=== PATIENT | female | born 1980 | race Asian ===

== ENCOUNTER 2021-11-23 16:03 | Emergency (ER) | payer OTHER ==
[~2021-11-23] VITALS: Ht 165.1 cm; Wt 68.0 kg
[2021-11-23] MEDS ORDERED: VISCOUS LIDOCAINE 2% 15 ML UDC PO STA ×2 (16:33→22:08)
[2021-11-23] MEDS ORDERED: MAGNESIUM/ALUMINUM HYDROXIDE/SIMETHICONE 30ML UDC PO STA ×2 (16:33→22:08)
[2021-11-23] MEDS ORDERED: FAMOTIDINE 20MG TABLET PO ONE ×2 (16:45→22:15)
[2021-11-23] MEDS ORDERED: ONDANSETRON HCL 4MG/2ML INJ IV ONE ×2 (16:45→22:15)
[2021-11-23 17:43] LABS: HEMATOCRIT. 44.3 % (36.0-48.0); HEMOGLOBIN. 14.3 g/dL (12.0-16.0); MEAN CORPUSCULAR HEMOGLOBIN 24.9 pg (28.0-32.0); MEAN CORPUSCULAR VOLUME 77.3 fL (81.0-99.0); PLATELET 254 x1000/uL (130-400); RED BLOOD CELL COUNT 5.72 mill/uL (4.2-5.4)
[2021-11-23 17:48] LABS: CHLORIDE 110 mEq/L (98-107)
[2021-11-23 17:51] LABS: HCG SCREEN NEGATIVE
[2021-11-23] MEDS ORDERED: SODIUM CHLORIDE 0.9% 1,000 ML IV ONE ×2 (18:15→22:15)
[2021-11-23 18:52] LABS: PLATELET ESTIMATE NORMAL
[2021-11-23 19:07] LABS: CLARITY URINE CLEAR (CLEAR); COLOR URINE YELLOW (YELLOW); KETONES URINE NEGATIVE (NEGATIVE); LEUKOCYTE ESTERASE URINE NEGATIVE (NEGATIVE); NITRITE URINE NEGATIVE (NEGATIVE); OCCULT BLOOD URINE TRACE (NEGATIVE); PH URINE 6.5 (4.5-8.0); PROTEIN URINE NEGATIVE (NEGATIVE); UROBILINOGEN URINE 0.2 E.U./dL (0.2-1.0)
[2021-11-23] MEDS ORDERED: LOPERAMIDE HCL 2MG CAPSULE PO ONE ×2 (23:00→23:30)
[2021-11-23] MEDS ORDERED: FAMO20TA8 MT (23:12)
[2021-11-23] MEDS ORDERED: MAG-55 MT (23:12)
[2021-11-23] MEDS ORDERED: IMOD MT (23:12)
[2021-11-23 23:15] VITALS: BP 180/99
== END 2021-11-24 00:08 | disposition left against medical advice (07) ==
LOC: ER 16:03
DX: R10.13 Epigastric pain (principal); D72.825 Bandemia; E87.2 Acidosis; D72.829 Elevated white blood cell count, unspecified; I10 Essential (primary) hypertension; Z90.710 Acquired absence of both cervix and uterus; Z98.890 Other specified postprocedural states
CPT/HCPCS: 36415; 71045; 80053; 81003; 83605; 83690; 84703; 85025; 93005; 96361; 96374; 96376; 99285; J2405; J7030